=== PATIENT | male | born 1930 | race Caucasian/White ===

== ENCOUNTER 2017-01-11 14:27 | Emergency (ER) | payer MEDICARE, BC ==
[2017-01-11 14:32] VITALS: TEMP 98.1
[2017-01-11] MEDS ORDERED: RX INFO: IV CONTRAST WAS GIVEN 1 EACH MISC MISCELLANE PRN (15:26)
[2017-01-11] MEDS ORDERED: SODIUM CHLORIDE 0.9% 1,000 ML IV ONE (15:26)
--- NOTE | 2017-01-11 15:40 | ED ---
Abdominal Pain HPI - General Chief Complaint: Abdominal Pain Stated Complaint: Abd Pain Time Seen by Provider: 01/11/17 14:43 Source: patient, family, RN notes reviewed Mode of arrival: ambulatory Limitations: no limitations - History of Present Illness Initial Comments: Patient is an 86-year-old male presents emergency room for evaluation of abdominal pain. Patient has been having abdominal pain for the past week. Patient's is present with patient. Patient's states that patient was evaluated by a visiting physician yesterday and he went in for an ultrasound and an abdominal x-ray. Patient states that they noticed some abnormalities on the imaging so they scheduled a computed tomography scan of his abdomen. Patient's states that they could not get patient in for a while so they were advised to come to the emergency room to get a CT. Patient states he is having right upper quadrant and right lower quadrant pain. Patient states the pain is worse when he presses over the area. Patient apparently has been constipated over the past 4 days and was given MiraLAX. Patient states he had a normal bowel movement this morning. Patient denies pain or burning during urination, trouble urinating or blood in urine. Patient denies chest pain or shortness of breath. Patient denies history of any abdominal surgeries. Patient denies fevers or chills. - Related Data Home Medications Medication Instructions Recorded Confirmed Captopril [Capoten] 25 mg PO HS 07/12/16 01/11/17 Doxazosin [Cardura] 2 mg PO HS 07/12/16 01/11/17 Finasteride [Proscar] 5 mg PO DAILY 07/12/16 01/11/17 Melatonin 10 mg PO HS 07/12/16 01/11/17 Mirtazapine [Remeron] 15 mg PO HS 07/12/16 01/11/17 Potassium Chloride [Klor-Con 10] 10 meq PO DAILY 07/12/16 01/11/17 Ergocalciferol [Vitamin D2] 50,000 unit PO WE 01/11/17 01/11/17 Furosemide [Lasix] 20 mg PO DAILY 01/11/17 01/11/17 Levofloxacin [Levaquin] 750 mg PO DAILY 01/11/17 01/11/17 Simvastatin [Zocor] 20 mg PO HS 01/11/17 01/11/17 Triamterene/Hydrochlorothiazid 1 tab PO DAILY 01/11/17 01/11/17 [Triamterene-Hctz 75-50 mg Tab] busPIRone HCl [Buspar] 10 mg PO BID 01/11/17 01/11/17 Allergies Allergy/AdvReac Type Severity Reaction Status Date / Time No Known Allergies Allergy Verified 01/11/17 15:46 Review of Systems ROS Statement: Those systems with pertinent positive or pertinent negative responses have been documented in the HPI. ROS Other: All systems not noted in ROS Statement are negative. Past Medical History Past Medical History: Dementia, Hyperlipidemia, Hypertension Additional Past Medical History / Comment(s): dementia History of Any Multi-Drug Resistant Organisms: None Reported Past Surgical History: Hernia Repair Additional Past Surgical History / Comment(s): cataract extraction Past Psychological History: No Psychological Hx Reported Smoking Status: Never smoker Past Alcohol Use History: Occasional Past Drug Use History: None Reported General Exam - General Exam Comments Initial Comments: Laying in exam room, no acute distress Limitations: no limitations General appearance: alert, in no apparent distress Head exam: Present: atraumatic, normocephalic, normal inspection Eye exam: Present: normal appearance ENT exam: Present: normal exam Neck exam: Present: normal inspection Respiratory exam: Present: normal lung sounds bilaterally. Absent: respiratory distress Cardiovascular Exam: Present: regular rate, normal rhythm, normal heart sounds GI/Abdominal exam: Present: soft, tenderness (Right upper quadrant), normal bowel sounds. Absent: distended, guarding, rebound, rigid Extremities exam: Present: normal inspection Back exam: Present: normal inspection Neurological exam: Present: alert, oriented X3, CN II-XII intact, normal gait Psychiatric exam: Present: normal affect, normal mood Skin exam: Present: warm, dry, intact, normal color. Absent: rash Course Vital Signs 01/11/17 01/11/17 01/11/17 14:30 18:11 19:56 Temperature 98.1 F Pulse Rate 82 75 76 Respiratory 18 18 16 Rate Blood Pressure 130/70 141/67 146/50 O2 Sat by Pulse 99 94 L Oximetry Medical Decision Making - Medical Decision Making Patient is a 86-year-old male presents to the emergency room for evaluation of abdominal pain. Patient was sent here by visiting physician [employer]. Patient had x-ray of chest and abdomen which showed no acute intrathoracic process or no evidence of obstruction in the abdomen. Abdominal sonogram ordered: Gallstones with no biliary dilation or ascites. CT abdomen/pelvis: Moderate pulmonary fibrotic changes. Atherosclerotic vascular disease. Mild prostate enlargement with calcification. Gallstones. 2 cm low density area in the posterior right kidney probably a cortical cysts. Acute pneumonia cannot be excluded. Patient is currently on Levaquin for pneumonia. Patient's vitals are stable. The patient has no cough. Patient is afebrile. Patient's O2 sat within normal limits. Advised patient to continue taking Levaquin to follow up with primary care provider. Patient denies any chest pain or shortness of breath. I checked the patient's O2 sat before discharge and was at 96%. Patient and state they understand everything that was discussed with him. Return parameters discussed. Case discussed with Dr. Meier. - Lab Data Result diagrams: 01/11/17 15:00 01/11/17 15:00 Lab Results 01/11/17 01/11/17 01/11/17 Range/Units 15:00 15:00 15:00 WBC 6.3 (3.8-10.6) k/uL RBC 4.05 L (4.30-5.90) m/uL Hgb 12.8 L (13.0-17.5) gm/dL Hct 37.7 L (39.0-53.0) % MCV 93.1 (80.0-100.0) fL MCH 31.7 (25.0-35.0) pg MCHC 34.0 (31.0-37.0) g/dL RDW 12.9 (11.5-15.5) % Plt Count 211 (150-450) k/uL Neutrophils % 52 % Lymphocytes % 34 % Monocytes % 7 % Eosinophils % 3 % Basophils % 0 % Neutrophils # 3.3 (1.3-7.7) k/uL Lymphocytes # 2.1 (1.0-4.8) k/uL Monocytes # 0.4 (0-1.0) k/uL Eosinophils # 0.2 (0-0.7) k/uL Basophils # 0.0 (0-0.2) k/uL Sodium 134 L (137-145) mmol/L Potassium 3.7 (3.5-5.1) mmol/L Chloride 96 L (98-107) mmol/L Carbon Dioxide 25 (22-30) mmol/L Anion Gap 13 mmol/L BUN 28 H (9-20) mg/dL Creatinine 1.42 H (0.66-1.25) mg/dL Est GFR (MDRD) Af Amer 57 (>60 ml/min/1.73 sqM) Est GFR (MDRD) Non-Af 47 (>60 ml/min/1.73 sqM) Glucose 103 H (74-99) mg/dL Calcium 9.0 (8.4-10.2) mg/dL Total Bilirubin 0.7 (0.2-1.3) mg/dL AST 21 (17-59) U/L ALT 21 (21-72) U/L Alkaline Phosphatase 80 (38-126) U/L Total Protein 6.5 (6.3-8.2) g/dL Albumin 4.1 (3.5-5.0) g/dL Amylase 69 (30-110) U/L Lipase 245 (23-300) U/L - Radiology Data Radiology results: report reviewed, image reviewed Disposition Clinical Impression: Cholelithiasis Disposition: HOME SELF-CARE Condition: Good Instructions: Biliary Colic (ED), Gallstones (ED) Additional Instructions: Please follow up with primary care provider or general surgeon. If any new symptom arises or symptoms worsen, return to ER as soon as possible. Referrals: Javy Flanagan MD [Primary Care Provider] - 1-2 days Time of Disposition: 19:15
[2017-01-11 15:47] LABS: Basophils % (A) 0 %; CH 32.4; Eosinophils # (A) 0.2 k/uL (0-0.7); Eosinophils % (A) 3 %; HCT 37.7 % (39.0-53.0); HDW 2.37; HGB 12.8 gm/dL (13.0-17.5); Luc # (Auto) 0.25; Luc % (Auto) 4; Lymphocytes # (A) 2.1 k/uL (1.0-4.8); Lymphocytes % (A) 34 %; MCH 31.7 pg (25.0-35.0); MCV 93.1 fL (80.0-100.0); Mean Platelet Volume 6.4; Monocytes # (A) 0.4 k/uL (0-1.0); Monocytes % (A) 7 %; Neutrophils # (A) 3.3 k/uL (1.3-7.7); Neutrophils % (A) 52 %; RBC 4.05 m/uL (4.30-5.90); RDW 12.9 % (11.5-15.5); WBC 6.3 k/uL (3.8-10.6); WBC (Perox) 6.21
[2017-01-11 15:49] LABS: Potassium 3.7 mmol/L (3.5-5.1); Total Bilirubin 0.7 mg/dL (0.2-1.3); Total Protein 6.5 g/dL (6.3-8.2)
--- NOTE | 2017-01-11 19:06 | CT ---
EXAMINATION TYPE: CT abdomen pelvis wo con DATE OF EXAM: 01/11/2017 4:57 PM COMPARISON: NONE HISTORY: Right sided abdominal pain. CT DLP: 583.10 mGycm Automated exposure control for dose reduction was used. TECHNIQUE: Helical acquisition of images was performed from the lung bases through the pelvis. FINDINGS: There is patchy reticular nodular infiltrate in the mid and lower lung reynoso. There is no definite p leural effusion. Liver spleen pancreas appear normal. There are multiple calcified gallstones. Bile ducts are not dila radha. There is no adrenal mass. Kidneys show no hydronephrosis. Ureters are not dilated. There is no r etroperitoneal adenopathy. Abdominal aorta is atheromatous. Bladder distends smoothly. There are pros tatic calcifications. There is no evidence of a bowel obstruction. I see no intestinal wall thickening. There is no ascites . I see no bony destructive process. IMPRESSION: MODERATE PULMONARY FIBROTIC CHANGES. ACUTE PNEUMONIA CANNOT BE EXCLUDED. PLEURAL AND PULMONARY SCARRI NG. ATHEROSCLEROTIC VASCULAR DISEASE. MILD PROSTATE ENLARGEMENT WITH CALCIFICATION. GALLSTONES. 2 CM LOW-DENSITY AREA IN THE POSTERIOR RIGHT KIDNEY IS PROBABLY A CORTICAL CYST.
[2017-01-11 19:57] VITALS: BP 146/50; PULSE 76; RESP 16
== END 2017-01-11 19:20 | disposition home or self-care (01) ==
LOC: EC 14:27
DX: K80.20 Calculus of gallbladder without cholecystitis without obstruction (principal); R10.31 Right lower quadrant pain; N40.0 Benign prostatic hyperplasia without lower urinary tract symptoms; I70.90 Unspecified atherosclerosis; J84.10 Pulmonary fibrosis, unspecified; R93.421 Abnormal radiologic findings on diagnostic imaging of right kidney; E78.5 Hyperlipidemia, unspecified; I10 Essential (primary) hypertension; Z79.899 Other long term (current) drug therapy; Z87.01 Personal history of pneumonia (recurrent)
CPT/HCPCS: 36415; 74176; 80053; 82150; 83690; 85025; 96360; 96361; 99284

== ENCOUNTER 2018-02-03 12:15 | Inpatient (IN) | payer MEDICARE, BC ==
[2018-02-03] MEDS ORDERED: SODIUM CHLORIDE 0.9% 1,000 ML IV STA (12:45)
[2018-02-03] MEDS ORDERED: MORPHINE SULFATE 2 MG/ML SYRINGE IV STA (12:45)
--- NOTE | 2018-02-03 12:49 | ED ---
General Adult HPI - General Chief complaint: Abdominal Pain Stated complaint: ABDOMINAL PAIN, POSS BOWEL BLOCKAGE Time Seen by Provider: 02/03/18 12:33 Source: patient, RN notes reviewed, old records reviewed Mode of arrival: wheelchair Limitations: physical limitation - History of Present Illness Initial comments: 87-year-old male presenting for evaluation of abdominal distention and abdominal pain. Patient did have an outpatient x-ray which revealed an ileus. He has had increasing pain and distention since this x-ray 2 days ago. He's had no vomiting. Last bowel movement was yesterday this was loose. He's had no flatus since sometime yesterday. Denies chest pain or dyspnea. Denies fever or chills. Patient does have history of dementia and is a poor historian. - Related Data Home Medications Medication Instructions Recorded Confirmed Captopril [Capoten] 25 mg PO HS 07/12/16 02/03/18 Doxazosin [Cardura] 2 mg PO HS 07/12/16 02/03/18 Finasteride [Proscar] 5 mg PO DAILY 07/12/16 02/03/18 Mirtazapine [Remeron] 15 mg PO HS 07/12/16 02/03/18 Furosemide [Lasix] 20 mg PO DAILY 01/11/17 02/03/18 ALPRAZolam [Xanax] 0.25 mg PO DAILY PRN 02/03/18 02/03/18 Metoclopramide [Reglan] 5 mg PO BID 02/03/18 02/03/18 Multivitamin [Multivitamins Adult 2 tab PO DAILY 02/03/18 02/03/18 Gummies] QUEtiapine [SEROquel] 25 mg PO BID 02/03/18 02/03/18 traMADol HCL [Ultram] 50 mg PO Q4HR PRN 02/03/18 02/03/18 Allergies Allergy/AdvReac Type Severity Reaction Status Date / Time No Known Allergies Allergy Verified 02/03/18 13:49 Review of Systems ROS Statement: Those systems with pertinent positive or pertinent negative responses have been documented in the HPI. ROS Other: All systems not noted in ROS Statement are negative. Past Medical History Past Medical History: Heart Failure, Dementia, Hyperlipidemia, Hypertension, Renal Disease Additional Past Medical History / Comment(s): dementia History of Any Multi-Drug Resistant Organisms: None Reported Past Surgical History: Hernia Repair Additional Past Surgical History / Comment(s): cataract extraction Past Psychological History: Anxiety Smoking Status: Never smoker Past Alcohol Use History: None Reported Past Drug Use History: None Reported General Exam Limitations: physical limitation General appearance: alert, in no apparent distress Head exam: Present: atraumatic, normocephalic Eye exam: Present: normal appearance, PERRL ENT exam: Present: normal exam Neck exam: Present: normal inspection. Absent: tenderness, meningismus Respiratory exam: Present: normal lung sounds bilaterally. Absent: respiratory distress Cardiovascular Exam: Present: normal rhythm, tachycardia GI/Abdominal exam: Present: distended, tenderness, diminished bowel sounds Extremities exam: Present: normal inspection, normal capillary refill. Absent: pedal edema Neurological exam: Present: alert, oriented X3, CN II-XII intact. Absent: motor sensory deficit Psychiatric exam: Present: normal affect, normal mood Skin exam: Present: warm, dry, intact. Absent: cyanosis, diaphoretic Course Vital Signs 02/03/18 02/03/18 12:24 14:55 Temperature 98.2 F 98.6 F Pulse Rate 106 H 100 Respiratory 20 18 Rate Blood Pressure 158/94 142/90 O2 Sat by Pulse 95 98 Oximetry Medical Decision Making - Medical Decision Making 87-year-old male presenting with abdominal distention and decreased flatus. Patient had an x-ray that showed an ileus several days ago. CT is obtained, this is negative for small bowel obstruction, there is mild ileus. Laboratory studies reviewed and are unremarkable. Patient will be admitted to general surgery with medicine on for medical management. - Lab Data Result diagrams: 02/03/18 13:15 02/03/18 13:00 Lab Results 02/03/18 02/03/18 02/03/18 Range/Units 13:00 13:00 13:15 WBC 8.8 (3.8-10.6) k/uL RBC 3.69 L (4.30-5.90) m/uL Hgb 12.0 L (13.0-17.5) gm/dL Hct 35.2 L (39.0-53.0) % MCV 95.5 (80.0-100.0) fL MCH 32.6 (25.0-35.0) pg MCHC 34.1 (31.0-37.0) g/dL RDW 14.3 (11.5-15.5) % Plt Count 190 (150-450) k/uL Neutrophils % 79 % Lymphocytes % 13 % Monocytes % 4 % Eosinophils % 3 % Basophils % 0 % Neutrophils # 7.0 (1.3-7.7) k/uL Lymphocytes # 1.2 (1.0-4.8) k/uL Monocytes # 0.3 (0-1.0) k/uL Eosinophils # 0.3 (0-0.7) k/uL Basophils # 0.0 (0-0.2) k/uL Sodium 134 L (137-145) mmol/L Potassium 3.5 (3.5-5.1) mmol/L Chloride 99 (98-107) mmol/L Carbon Dioxide 27 (22-30) mmol/L Anion Gap 8 mmol/L BUN 12 (9-20) mg/dL Creatinine 1.00 (0.66-1.25) mg/dL Est GFR (CKD-EPI)AfAm 77 (>60 ml/min/1.73 sqM) Est GFR (CKD-EPI)NonAf 67 (>60 ml/min/1.73 sqM) Glucose 137 H (74-99) mg/dL Plasma Lactic Acid Lalo 1.1 (0.7-2.0) mmol/L Calcium 8.3 L (8.4-10.2) mg/dL Total Bilirubin 0.7 (0.2-1.3) mg/dL AST 22 (17-59) U/L ALT 32 (21-72) U/L Alkaline Phosphatase 95 (38-126) U/L Total Protein 5.0 L (6.3-8.2) g/dL Albumin 2.8 L (3.5-5.0) g/dL Amylase 31 (30-110) U/L Lipase 78 (23-300) U/L Urine Color Urine Appearance (Clear) Urine pH (5.0-8.0) Ur Specific [place] (1.001-1.035) Urine Protein (Negative) Urine Glucose (UA) (Negative) Urine Ketones (Negative) Urine Blood (Negative) Urine Nitrite (Negative) Urine Bilirubin (Negative) Urine Urobilinogen (<2.0) mg/dL Ur Leukocyte Esterase (Negative) 02/03/18 Range/Units 14:30 WBC (3.8-10.6) k/uL RBC (4.30-5.90) m/uL Hgb (13.0-17.5) gm/dL Hct (39.0-53.0) % MCV (80.0-100.0) fL MCH (25.0-35.0) pg MCHC (31.0-37.0) g/dL RDW (11.5-15.5) % Plt Count (150-450) k/uL Neutrophils % % Lymphocytes % % Monocytes % % Eosinophils % % Basophils % % Neutrophils # (1.3-7.7) k/uL Lymphocytes # (1.0-4.8) k/uL Monocytes # (0-1.0) k/uL Eosinophils # (0-0.7) k/uL Basophils # (0-0.2) k/uL Sodium (137-145) mmol/L Potassium (3.5-5.1) mmol/L Chloride (98-107) mmol/L Carbon Dioxide (22-30) mmol/L Anion Gap mmol/L BUN (9-20) mg/dL Creatinine (0.66-1.25) mg/dL Est GFR (CKD-EPI)AfAm (>60 ml/min/1.73 sqM) Est GFR (CKD-EPI)NonAf (>60 ml/min/1.73 sqM) Glucose (74-99) mg/dL Plasma Lactic Acid Lalo (0.7-2.0) mmol/L Calcium (8.4-10.2) mg/dL Total Bilirubin (0.2-1.3) mg/dL AST (17-59) U/L ALT (21-72) U/L Alkaline Phosphatase (38-126) U/L Total Protein (6.3-8.2) g/dL Albumin (3.5-5.0) g/dL Amylase (30-110) U/L Lipase (23-300) U/L Urine Color Yellow Urine Appearance Clear (Clear) Urine pH 7.5 (5.0-8.0) Ur Specific [place] 1.016 (1.001-1.035) Urine Protein Negative (Negative) Urine Glucose (UA) Negative (Negative) Urine Ketones Negative (Negative) Urine Blood Negative (Negative) Urine Nitrite Negative (Negative) Urine Bilirubin Negative (Negative) Urine Urobilinogen <2.0 (<2.0) mg/dL Ur Leukocyte Esterase Negative (Negative) Disposition Clinical Impression: Ileus Disposition: ADMITTED IP TO THIS HOSP Condition: Stable Is patient prescribed a controlled substance at d/c from ED?: No Referrals: Javy Flanagan MD [Primary Care Provider] - 1-2 days Decision to Admit Reason: Admit from EC Decision Date: 02/03/18 Decision Time: 15:30
[2018-02-03 13:25] LABS: Potassium 3.5 mmol/L (3.5-5.1)
[2018-02-03 13:26] LABS: Albumin 2.8 g/dL (3.5-5.0); Calcium 8.3 mg/dL (8.4-10.2); Total Bilirubin 0.7 mg/dL (0.2-1.3)
[2018-02-03 13:29] LABS: Basophils % (A) 0 %; Eosinophils # (A) 0.3 k/uL (0-0.7); Eosinophils % (A) 3 %; HCT 35.2 % (39.0-53.0); Lymphocytes # (A) 1.2 k/uL (1.0-4.8); Lymphocytes % (A) 13 %; MCH 32.6 pg (25.0-35.0); MCHC 34.1 g/dL (31.0-37.0); MCV 95.5 fL (80.0-100.0); Mean Platelet Volume 7.6; Monocytes # (A) 0.3 k/uL (0-1.0); Monocytes % (A) 4 %; Neutrophils % (A) 79 %; Platelet Count 190 k/uL (150-450); RBC 3.69 m/uL (4.30-5.90); RDW 14.3 % (11.5-15.5); WBC 8.8 k/uL (3.8-10.6)
--- NOTE | 2018-02-03 14:20 | CT ---
EXAMINATION TYPE: CT abdomen pelvis w con DATE OF EXAM: 02/03/2018 COMPARISON: 01/11/2017 HISTORY: Abdominal pain, Possible bowel obstruction CT DLP: 1806 mGycm Automated exposure control for dose reduction was used. TECHNIQUE: Helical acquisition of images was performed from the lung bases through the pelvis. CONTRAST: Performed without Oral Contrast and with IV Contrast, patient injected with 100 ml mL of Isovue 300. FINDINGS: There is extensive interstitial linear infiltrate at the lung bases. There is no pleural effusion on the left side. There is probably small right pleural effusion. Liver shows no focal defect. There are multiple calcified gallstones. Bile ducts are not dilated. Spl een appears normal. There is no pancreatic mass. There is no adrenal mass. Kidneys show satisfactory contrast opacification. There is no hydronephrosi s. There is 12 mm cyst on the posterior right kidney. There is 2 mm cortical cyst lateral left kidney . There is no retroperitoneal adenopathy. There is no ascites. There are some fluid-filled loops of s mall bowel in the mid abdomen. Bladder distends smoothly. There is no evidence of a pelvic mass. I se e no intestinal wall thickening. There is no evidence of appendicitis. Appendix appears normal. There are spondylotic changes in the thoracic and lumbar spine. IMPRESSION: CHOLELITHIASIS. NO DILATED DUCTS. Extensive fibrotic changes at the lung bases. This appears unchange d compared to old exam. Small bowel fluid consistent with mild ileus. This is a change compared to old exam. I do not see ev idence for mechanical bowel obstruction.
[2018-02-03] MEDS ORDERED: METOCLOPRAMIDE 5 MG/ML 2 ML VIAL IVP STA (14:36)
[2018-02-03] MEDS ORDERED: NALOXONE 0.4 MG/ML 1 ML VIAL IV PRN (14:39)
[2018-02-03] MEDS ORDERED: ACETAMINOPHEN TAB 325 MG TAB PO PRN (14:39)
[2018-02-03 14:51] LABS: Appearance,Urine Clear (Clear); Bilirubin,Urine Negative (Negative); Blood,Urine Negative (Negative); Color,Urine Yellow; Glucose,Urine (UA) Negative (Negative); Ketones,Urine Negative (Negative); Leukocyte Esterase,Urine Negative (Negative); Nitrite,Urine Negative (Negative); PH, Urine 7.5 (5.0-8.0); Protein,Urine Negative (Negative); Specific Gravity,Urine 1.016 (1.001-1.035); Urobilinogen,Urine <2.0 mg/dL (<2.0)
[2018-02-03] MEDS ORDERED: 0.9% NACL WITH KCL 20 MEQ/L 1,000 ML IV ONE (15:00)
[2018-02-03 16:54] VITALS: BMI 25.8
[2018-02-03] MEDS: traMADol 50 MG TAB PO PRN (19:51)
[2018-02-03] MEDS: ONDANSETRON 4 MG/2 ML VIAL IVP PRN (19:56)
[2018-02-03] MEDS: MIRTAZAPINE 15 MG TAB PO SCH (20:40)
[2018-02-03] MEDS: QUEtiapine 25 MG TAB PO SCH (20:40)
[2018-02-03] MEDS: ALPRAZolam 0.25 MG TAB PO PRN (20:40)
[2018-02-03] MEDS: DOXAZOSIN 2 MG TAB PO SCH (20:41)
[2018-02-03] MEDS: ENOXAPARIN 40 MG/0.4 ML SYRINGE SQ SCH (20:41)
[2018-02-03] MEDS: IBUPROFEN 400 MG TAB PO PRN (23:22)
[2018-02-04] MEDS: traMADol 50 MG TAB PO PRN ×4 (02:23→23:25)
[2018-02-04] MEDS: 0.9% NACL WITH KCL 20 MEQ/L 1,000 ML IV SCH ×3 (06:09→20:45)
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
[2018-02-04] MEDS: ENOXAPARIN 40 MG/0.4 ML SYRINGE SQ SCH (07:50)
[2018-02-04] MEDS: QUEtiapine 25 MG TAB PO SCH ×2 (07:50→20:40)
[2018-02-04] MEDS: FINASTERIDE 5 MG TAB PO SCH (07:50)
--- NOTE | 2018-02-04 11:51 | P.PN ---
Subjective this is a pleasant 87 yo M with pmh of heart failure , hypertensino , hyperlipidemia, renal disease , dementia, who presents for abdominal pain about 7/10 in severity on the left mid abdomen , non specific in quality but it comes and goes possible colicky in nature, associated with no nausea or vomiting CT of the abdomen and pelvis with IV contrast under the emergency room showing some fluid-filled loops of small bowel in the mid abdomen consistent with mild ileus and gall stones. Patient was and admitted under surgical service and with been called for medical consultation covering for Dr. barnett 02/04/2018 Patient had become painless bowel movement this morning which was loose, patient was on clear liquid diet, no nausea or vomiting. He still have some abdominal pain 7/10 in severity, however patient does not look in distress due to pain Objective - Vital Signs Vital signs: Vital Signs Temp 97.4 F L 02/04/18 05:00 Pulse 103 H 02/04/18 05:00 Resp 16 02/04/18 05:00 BP 131/79 02/04/18 05:00 Pulse Ox 91 L 02/04/18 05:00 Intake & Output 02/03/18 02/04/18 02/04/18 18:59 06:59 18:59 Intake Total 1920 Balance 1920 Weight 86.319 kg Intake: Intake, IV Titration 850 Amount 0.9% NaCl with KCl 20 Meq 850 /l 1,000 ml @ 75 mls/hr IV .[id number] ONE Rx#: [id number] Oral 1070 Other: Voiding Method Toilet Toilet Toilet Incontinent Urinal Urinal Diaper Diaper Incontinent Incontinent # Voids 2 - Exam GENERAL: The patient is alert and oriented x3, not in any acute distress. Well developed, well nourished. HEENT: Pupils are round and equally reacting to light. EOMI. No scleral icterus. No conjunctival pallor. Normocephalic, atraumatic. No pharyngeal erythema. No thyromegaly. CARDIOVASCULAR: S1 and S2 present. No murmurs, rubs, or gallops. PULMONARY: Chest is clear to auscultation, no wheezing or crackles. -ABDOMEN: Soft, , mildlydistended, normoactive bowel sounds. No palpable organomegaly. mid abdominal tenderness, no rebound tenderness MUSCULOSKELETAL: No joint swelling or deformity. EXTREMITIES: No cyanosis, clubbing, or pedal edema. NEUROLOGICAL: Gross neurological examination did not reveal any focal deficits. SKIN: No rashes. - Labs CBC & Chem 7: 02/03/18 13:15 02/03/18 13:00 Labs: Abnormal Lab Results - Last 24 Hours (Table) 02/03/18 02/03/18 Range/Units 13:00 13:15 RBC 3.69 L (4.30-5.90) m/uL Hgb 12.0 L (13.0-17.5) gm/dL Hct 35.2 L (39.0-53.0) % Sodium 134 L (137-145) mmol/L Glucose 137 H (74-99) mg/dL Calcium 8.3 L (8.4-10.2) mg/dL Total Protein 5.0 L (6.3-8.2) g/dL Albumin 2.8 L (3.5-5.0) g/dL Assessment and Plan Plan: Assessment and Plan -Abdominal pain, CT abdomen and pelvis shows possible mild ileus in the mid abdomen, surgical service team are followingthe case and they think this could be related to irritable bowel with possible mild ileus, continue same treatment -Dementia continue with same treatment -Hyperlipidemia continue same treatment -Essential hypertension continue with same treatment DVT prophylaxis on Lovenox GI prophylaxis on Pepcid Thank you for consulting [facility], please feel free to contact us for any further clarification or questions
[2018-02-04] MEDS: IBUPROFEN 400 MG TAB PO PRN (12:44)
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
--- NOTE | 2018-02-04 15:00 | XR ---
EXAMINATION TYPE: XR abdomen 2V DATE OF EXAM: 02/04/2018 CLINICAL DATA: 87-year-old male ileus, [facility] COMPARISON: Correlation CT 02/03/2018 FINDINGS: Scattered colonic and small bowel air is present. Colon measures up to 8.4 cm. No dilated small bowel loops identified. Supine imaging limited for assessment of free air. Contrast material seen within the partially distended bladder. IMPRESSION: Borderline distention of the transverse colon suggests a mild ileus. No evidence for small bowel obst ruction.
[2018-02-04 16:00] VITALS: RESP 18
[2018-02-04] MEDS: MIRTAZAPINE 15 MG TAB PO SCH (20:40)
[2018-02-04] MEDS: FAMOTIDINE 20 MG/2 ML VIAL IV SCH (20:40)
[2018-02-04] MEDS: DOXAZOSIN 2 MG TAB PO SCH (20:40)
--- NOTE | 2018-02-04 22:51 | P.PN ---
Progress Note - Text Progress Note Date: 02/04/18 Resting comfortably. Ileus resolving. No surgical intervention required.
[2018-02-05] MEDS: ALPRAZolam 0.25 MG TAB PO PRN ×2 (04:26→13:16)
[2018-02-05] MEDS: traMADol 50 MG TAB PO PRN (04:26)
[2018-02-05] MEDS: ONDANSETRON 4 MG/2 ML VIAL IVP PRN (04:29)
[2018-02-05 06:30] VITALS: BP 129/80; PULSE 105; TEMP 98.3
[2018-02-05 08:15] LABS: Basophils % (A) 0 %; Eosinophils # (A) 0.5 k/uL (0-0.7); Eosinophils % (A) 7 %; HCT 35.1 % (39.0-53.0); HGB 11.6 gm/dL (13.0-17.5); Lymphocytes # (A) 1.2 k/uL (1.0-4.8); Lymphocytes % (A) 16 %; MCH 32.3 pg (25.0-35.0); MCV 97.9 fL (80.0-100.0); Mean Platelet Volume 7.1; Monocytes # (A) 0.4 k/uL (0-1.0); Monocytes % (A) 5 %; Neutrophils # (A) 5.4 k/uL (1.3-7.7); Neutrophils % (A) 70 %; Platelet Count 194 k/uL (150-450); RBC 3.59 m/uL (4.30-5.90); WBC 7.7 k/uL (3.8-10.6)
[2018-02-05 08:22] LABS: Calcium 8.3 mg/dL (8.4-10.2); Potassium 4.2 mmol/L (3.5-5.1)
--- NOTE | 2018-02-05 08:26 | P.PN ---
Subjective this is a pleasant 87 yo M with pmh of heart failure , hypertensino , hyperlipidemia, renal disease , dementia, who presents for abdominal pain about 7/10 in severity on the left mid abdomen , non specific in quality but it comes and goes possible colicky in nature, associated with no nausea or vomiting CT of the abdomen and pelvis with IV contrast under the emergency room showing some fluid-filled loops of small bowel in the mid abdomen consistent with mild ileus and gall stones. Patient was and admitted under surgical service and with been called for medical consultation covering for Dr. barnett 02/04/2018 Patient had become painless bowel movement this morning which was loose, patient was on clear liquid diet, no nausea or vomiting. He still have some abdominal pain 7/10 in severity, however patient does not look in distress due to pain 02/05/2018 Yesterday the patient service was transferred from surgery to medical team under our service and the surgical team would be on consultation as per their request This morning patient still have abdominal pain however he states is better, he rates it as 5-6/10 in severity, didn't past bowel movement or gastritis. No nausea vomiting. And he states his walking is at his baseline. Surgical team recommended no surgical intervention last night. He is on a clear liquid diet Objective - Vital Signs Vital signs: Vital Signs Temp 98.3 F 02/05/18 06:29 Pulse 105 H 02/05/18 06:29 Resp 18 02/05/18 06:29 BP 129/80 02/05/18 06:29 Pulse Ox 95 02/05/18 06:29 Intake & Output 02/04/18 02/05/18 02/05/18 18:59 06:59 18:59 Intake Total 650 1530 Output Total 150 Balance 500 1530 Intake: Intake, IV Titration 600 Amount 0.9% NaCl with KCl 20 Meq 600 /l 1,000 ml @ 75 mls/hr IV .[id number] [facility] Rx#: [id number] Oral 650 930 Output: Urine 150 Other: Voiding Method Toilet Toilet Urinal Urinal Diaper Diaper Incontinent Incontinent # Voids 1 1 # Bowel Movements 2 - Exam GENERAL: The patient is alert and oriented x3, not in any acute distress. Well developed, well nourished. HEENT: Pupils are round and equally reacting to light. EOMI. No scleral icterus. No conjunctival pallor. Normocephalic, atraumatic. No pharyngeal erythema. No thyromegaly. CARDIOVASCULAR: S1 and S2 present. No murmurs, rubs, or gallops. PULMONARY: Chest is clear to auscultation, no wheezing or crackles. -ABDOMEN: Soft, , mildlydistended, normoactive bowel sounds. No palpable organomegaly. mid abdominal tenderness, no rebound tenderness MUSCULOSKELETAL: No joint swelling or deformity. EXTREMITIES: No cyanosis, clubbing, or pedal edema. NEUROLOGICAL: Gross neurological examination did not reveal any focal deficits. SKIN: No rashes. - Labs CBC & Chem 7: 02/03/18 13:15 02/03/18 13:00 Assessment and Plan Plan: -Abdominal pain, CT abdomen and pelvis shows possible mild ileus in the mid abdomen, surgical service team are following the case and they think this could be related to irritable bowel with possible mild ileus, continue same treatment -Dementia continue with same treatment -Hyperlipidemia continue same treatment -Essential hypertension continue with same treatment DVT prophylaxis on Lovenox GI prophylaxis on Pepcid
[2018-02-05] MEDS: QUEtiapine 25 MG TAB PO SCH (08:55)
[2018-02-05] MEDS: FINASTERIDE 5 MG TAB PO SCH (08:55)
[2018-02-05] MEDS: FAMOTIDINE 20 MG/2 ML VIAL IV SCH (08:55)
[2018-02-05] MEDS: ENOXAPARIN 40 MG/0.4 ML SYRINGE SQ SCH (08:56)
--- NOTE | 2018-02-05 13:10 | P.PN ---
<Debra Dennison M - Last Filed: 02/05/18 13:21> Subjective Progress Note Date: 02/05/18 87-year-old male sitting up in a chair seen at the bedside. Daughter at bedside. Daughter indicates patient did have 2 bowel movements last night and did ambulate in the hallway with nursing. Patient's tolerating a clear liquid diet. According to the daughter patient is back to baseline. There is no surgical intervention at this time. Patient when questioning is denying abdominal discomfort when questioning Objective - Vital Signs Vital signs: Vital Signs Temp 98.3 F 02/05/18 06:29 Pulse 105 H 02/05/18 06:29 Resp 18 02/05/18 06:29 BP 129/80 02/05/18 06:29 Pulse Ox 95 02/05/18 06:29 Intake & Output 02/04/18 02/05/18 02/05/18 18:59 06:59 18:59 Intake Total 650 1530 Output Total 150 Balance 500 1530 Intake: Intake, IV Titration 600 Amount 0.9% NaCl with KCl 20 Meq 600 /l 1,000 ml @ 75 mls/hr IV .[id number] [facility] Rx#: [id number] Oral 650 930 Output: Urine 150 Other: Voiding Method Toilet Toilet Toilet Urinal Urinal Urinal Diaper Diaper Diaper Incontinent Incontinent Incontinent # Voids 1 1 1 # Bowel Movements 2 - Exam Physical exam 87-year-old male sitting up in a chair pleasant oriented to self only cooperative Lungs adequate air movement bilaterally on room air Heart S1-S2 audible regular Abdomen soft no facial grimacing with palpitation to the abdominal wall bowel sounds present daughter states patient had a bowel movement yesterday no nausea no vomiting tolerating diet Extremities no edema - Labs CBC & Chem 7: 02/05/18 07:41 02/05/18 07:41 Labs: Abnormal Lab Results - Last 24 Hours (Table) 02/05/18 02/05/18 Range/Units 07:41 07:41 RBC 3.59 L (4.30-5.90) m/uL Hgb 11.6 L (13.0-17.5) gm/dL Hct 35.1 L (39.0-53.0) % Calcium 8.3 L (8.4-10.2) mg/dL Assessment and Plan Assessment: Impression Present on admission abdominal pain with distention with an outpatient x-ray suggested of an ileus resolved Cognitive impairment with dementia with no behavior disturbance CAT scan abdomen and pelvis on admission shows cholelithiasis no dilated ducts Plan Okay to discharge from surgical perspective defer to the timing to the attending diet advance as tolerated PT OT eval increase activity no evidence of an acute surgical abdomen at this time We'll follow with you DVT and GI prophylaxis note dictated for Dr. Messer rounding on behalf on dr nugent The above impression and plan of care have been discussed and directed by signing physician. Debra Dennison nurse practitioner acting as scribe for signing physician. <Helen Messer N - Last Filed: 02/05/18 18:18> Objective - Vital Signs Vital signs: Vital Signs Temp 98.3 F 02/05/18 06:29 Pulse 105 H 02/05/18 06:29 Resp 18 02/05/18 06:29 BP 129/80 02/05/18 06:29 Pulse Ox 95 02/05/18 06:29 Intake & Output 02/04/18 02/05/18 02/05/18 18:59 06:59 18:59 Intake Total 650 1530 525 Output Total 150 Balance 500 1530 525 Intake: Intake, IV Titration 600 525 Amount 0.9% NaCl with KCl 20 Meq 600 525 /l 1,000 ml @ 75 mls/hr IV .[id number] [facility] Rx#: [id number] Oral 650 930 Output: Urine 150 Other: Voiding Method Toilet Toilet Toilet Urinal Urinal Urinal Diaper Diaper Diaper Incontinent Incontinent Incontinent # Voids 1 1 1 # Bowel Movements 2 - Labs CBC & Chem 7: 02/05/18 07:41 02/05/18 07:41 Labs: Abnormal Lab Results - Last 24 Hours (Table) 02/05/18 02/05/18 Range/Units 07:41 07:41 RBC 3.59 L (4.30-5.90) m/uL Hgb 11.6 L (13.0-17.5) gm/dL Hct 35.1 L (39.0-53.0) % Calcium 8.3 L (8.4-10.2) mg/dL
--- NOTE | 2018-02-05 13:40 | P.DS ---
Providers Date of admission: 02/03/18 14:39 Attending physician: Saud Hamlin MD Consults: 02/03/18 15:24 Consult Physician Routine Consulting Provider: Vasiliy Bailey Consult Reason/Comments: ileus, medical management Do you want consulting provider notified?: Yes 02/04/18 12:25 Consult Physician Routine Consulting Provider: Alvarado Don Consult Reason/Comments: ileus Do you want consulting provider notified?: Already Contacted Primary care physician: Saud Hamlin MD Hospital Course: this is a pleasant 87 yo M with pmh of heart failure , hypertensino , hyperlipidemia, renal disease , dementia, who presents for abdominal pain about 7/10 in severity on the left mid abdomen , non specific in quality but it comes and goes possible colicky in nature, associated with no nausea or vomiting CT of the abdomen and pelvis with IV contrast under the emergency room showing some fluid-filled loops of small bowel in the mid abdomen consistent with mild ileus and gall stones. Patient was and admitted under surgical service and with been called for medical consultation covering for Dr. bailey 02/04/2018 Patient had become painless bowel movement this morning which was loose, patient was on clear liquid diet, no nausea or vomiting. He still have some abdominal pain 7/10 in severity, however patient does not look in distress due to pain 02/05/2018 Yesterday the patient service was transferred from surgery to medical team under our service and the surgical team would be on consultation as per their request This morning patient still have abdominal pain however he states is better, he rates it as 5-6/10 in severity, pt did have bowel movement as per selam at bed side. No nausea vomiting. And he states his walking is at his baseline. Surgical team recommended no surgical intervention last night. He is on a clear liquid diet advanced to regular as pt has regular sandwich and he tolerated that well pt was evaluated and cleared for discharge today be the surgical team Problem list and management plan were discussed with the patient and daughter was Belinda at bedside and they verbalized understanding and acceptance As per . patient has a home hospice, and he has a visiting nurse. I recommended he sees his doctors within 1 week. His doctor states that she and the family will try to make Doctor see him as recommended Patient is found stable and can discharge home but with guarded prognosis however he needs follow-up as an outpatient GENERAL: The patient is alert and oriented x3, not in any acute distress. Well developed, well nourished. HEENT: Pupils are round and equally reacting to light. EOMI. No scleral icterus. No conjunctival pallor. Normocephalic, atraumatic. No pharyngeal erythema. No thyromegaly. CARDIOVASCULAR: S1 and S2 present. No murmurs, rubs, or gallops. PULMONARY: Chest is clear to auscultation, no wheezing or crackles. -ABDOMEN: Soft, , nondistended, normoactive bowel sounds. No palpable organomegaly. no abdominal tenderness, no rebound tenderness, resolved MUSCULOSKELETAL: No joint swelling or deformity. EXTREMITIES: No cyanosis, clubbing, or pedal edema. NEUROLOGICAL: Gross neurological examination did not reveal any focal deficits. SKIN: No rashes. Time spent more than 35 minutes Patient Condition at Discharge: Stable Plan - Discharge Summary Discharge Rx Participant: Yes New Discharge Prescriptions: New Acetaminophen Tab [Tylenol] 650 mg PO Q6HR PRN tab PRN Reason: Mild Pain Or Fever > 100.5 Continue ALPRAZolam [Xanax] 0.25 mg PO DAILY PRN PRN Reason: Anxiety traMADol HCL [Ultram] 50 mg PO Q4HR PRN PRN Reason: Pain Metoclopramide [Reglan] 5 mg PO BID Multivitamin [Multivitamins Adult Gummies] 2 tab PO DAILY QUEtiapine [SEROquel] 25 mg PO BID No Action Finasteride [Proscar] 5 mg PO DAILY Mirtazapine [Remeron] 15 mg PO HS Doxazosin [Cardura] 2 mg PO HS Captopril [Capoten] 25 mg PO HS Furosemide [Lasix] 20 mg PO DAILY Discharge Medication List Captopril [Capoten] 25 mg PO HS 07/12/16 [History] Doxazosin [Cardura] 2 mg PO HS 07/12/16 [History] Finasteride [Proscar] 5 mg PO DAILY 07/12/16 [History] Mirtazapine [Remeron] 15 mg PO HS 07/12/16 [History] Furosemide [Lasix] 20 mg PO DAILY 01/11/17 [History] ALPRAZolam [Xanax] 0.25 mg PO DAILY PRN 02/03/18 [History] Metoclopramide [Reglan] 5 mg PO BID 02/03/18 [History] Multivitamin [Multivitamins Adult Gummies] 2 tab PO DAILY 02/03/18 [History] QUEtiapine [SEROquel] 25 mg PO BID 02/03/18 [History] traMADol HCL [Ultram] 50 mg PO Q4HR PRN 02/03/18 [History] Acetaminophen Tab [Tylenol] 650 mg PO Q6HR PRN tab 02/05/18 [Rx] Follow up Appointment(s)/Referral(s): Javy Flanagan MD [REFERRING] - 1-2 days (Please call to make an appointment within 1 week) Activity/Diet/Wound Care/Special Instructions: [facility] - Diet, resume the previous diet Activity as tolerated
== END 2018-02-05 14:25 | disposition hospice, home (50) | DRG 390 ==
LOC: EC 12:15 → 5MS5E 14:39
PROVIDERS: ADMIT Surgery; ATTEND Internal Medicine
DX: K56.7 Ileus, unspecified (principal); E78.5 Hyperlipidemia, unspecified; F03.90 Unspecified dementia, unspecified severity, without behavioral disturbance, psychotic disturbance, mood disturbance, and anxiety; H91.90 Unspecified hearing loss, unspecified ear; I11.0 Hypertensive heart disease with heart failure; I50.9 Heart failure, unspecified; K58.9 Irritable bowel syndrome, unspecified; Z97.4 Presence of external hearing-aid; K80.20 Calculus of gallbladder without cholecystitis without obstruction; Z79.899 Other long term (current) drug therapy; Z82.49 Family history of ischemic heart disease and other diseases of the circulatory system; Z83.3 Family history of diabetes mellitus; Z87.891 Personal history of nicotine dependence
CPT/HCPCS: 36415; 74019; 74177; 80048; 80053; 81003; 82150; 83605; 83690; 85025; 96361; 96374; 99285